=== PATIENT | female | born 1960 | race Caucasian/White ===

== ENCOUNTER → 2018-06-26 | Outpatient (CLI) | payer OTHER | LOC: M.RAD 14:28 | DX: Z12.31 Encounter for screening mammogram for malignant neoplasm of breast (principal) ==

== ENCOUNTER 2019-10-21 18:55 | Emergency (ER) | payer OTHER ==
[~2019-10-21] VITALS: Ht 165.1 cm; Wt 95.7 kg
[2019-10-21] MEDS ORDERED: KAPSPARGO SPRIN25 MG PO (19:36)
[2019-10-21] MEDS ORDERED: LISINOPRIL-HCT1 EAC1 PO (19:36)
[2019-10-21] MEDS ORDERED: VITAMIN D325 MC3 PO (19:36)
[2019-10-21 21:39] LABS: ABSOLUTE BASOPHILS 0.1 thou/uL (0.0-0.2); ABSOLUTE EOSINOPHILS 0.2 thou/uL (0.0-0.7); ABSOLUTE LYMPHOCYTES 2.5 thou/uL (0.8-5.3); ABSOLUTE MONOCYTES 0.8 thou/uL (0.0-1.2); ABSOLUTE NEUTROPHILS 10.8 thou/uL (1.6-8.1); BASOPHILS 0.8 %; EOSINOPHILS 1.7 %; HEMATOCRIT 40.5 % (37.0-47.0); HEMOGLOBIN 13.8 gm/dL (12.0-15.0); LYMPHOCYTES 17.5 %; MCH 32.2 pg (26.0-34.0); MCHC 34.1 g/dL (28.0-37.0); MCV 94.4 fL (80.0-100.0); MONOCYTES 5.4 %; MPV 7.6 fl. (7.2-11.1); NUCLEATED RBCS 0 /100WBC; PLATELET COUNT* 350 thou/uL (150-400); POLYS 74.6 %; RBC 4.29 mil/uL (4.20-5.00); RDW-CV 13.8 % (10.5-14.5); WBC 14.5 thou/uL (4.0-11.0)
[2019-10-21 21:46] LABS: CALCIUM 9.4 mg/dL (8.5-10.1); CREATININE 0.6 mg/dL (0.6-1.3); POTASSIUM 3.2 mmol/L (3.5-5.1)
[2019-10-21 21:51] LABS: ALBUMIN 3.7 g/dL (3.4-5.0); TOTAL BILIRUBIN 0.3 mg/dL (<0.1-1.0); TOTAL PROTEIN 7.2 g/dL (6.4-8.2)
[2019-10-21 21:52] LABS: URINE BILIRUBIN NEGATIVE (Negative); URINE BLOOD 2+ (Negative); URINE CLARITY CLEAR; URINE COLOR YELLOW; URINE GLUCOSE-RANDOM NEGATIVE (Negative); URINE KETONES NEGATIVE (Negative); URINE LEUKOCYTES-REFLEX NEGATIVE (Negative); URINE NITRITE-REFLEX NEGATIVE (Negative); URINE PROTEIN NEGATIVE (Negative); URINE UROBILINOGEN 0.2 E.U./dl (0.2-1.0)
[2019-10-21 22:09] LABS: SQUAMOUS 0-3 Few /LPF (0-3)
[2019-10-21 22:10] LABS: BACTERIA-REFLEX None Seen /HPF (None Seen); CASTS None Seen /LPF (None Seen); CRYSTALS None Seen /LPF (None Seen); URINE RBC 3-10 Few /HPF (0-2); URINE WBC-REFLEX 0-5 Rare /HPF (0-5)
[2019-10-21] MEDS ORDERED: HYDROCODON-ACE1 EAC8 PO (23:27)
[2019-10-21] MEDS ORDERED: FLOMAX0.4 MG PO (23:27)
[2019-10-21 23:51] VITALS: BP 159/72
--- NOTE | 2019-10-22 16:35 | EKG ---
[place] [address] ELECTROCARDIOGRAM REPORT Name: ARMANDO SPEARS Room: 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
== END 2019-10-21 23:51 | disposition home or self-care (01) ==
LOC: M.ERS 18:55
PROVIDERS: Emergency Medicine; Nurse Practitioner Family
DX: N20.0 Calculus of kidney (principal); Z88.8 Allergy status to other drugs, medicaments and biological substances

== ENCOUNTER → 2020-11-04 | Outpatient (CLI) | payer OTHER ==
[~2020-11-04] MED LIST: FLOMAX0.4 MG PO; HYDROCODON-ACE1 EAC8 PO; KAPSPARGO SPRIN25 MG PO; LISINOPRIL-HCT1 EAC1 PO; VITAMIN D325 MC3 PO
== END ==
LOC: M.LAB 14:43
PROVIDERS: ATTEND Family Medicine
DX: Z12.31 Encounter for screening mammogram for malignant neoplasm of breast (principal)

== ENCOUNTER → 2021-06-17 | Outpatient (CLI) | payer OTHER | LOC: M.ULTRA 15:52 | PROVIDERS: ATTEND Family Medicine | DX: M79.662 Pain in left lower leg (principal) ==